=== PATIENT | male | born 1955 | race Caucasian/White ===

== ENCOUNTER 2024-07-14 10:38 | Emergency (ER) | payer MEDICARE ==
[~2024-07-14] VITALS: Ht 167.6 cm; Wt 93.3 kg
[2024-07-14 10:40] VITALS: TEMP 98.8
[2024-07-14 11:53] LABS: BASOPHILS # (AUTO) 0.1 X10'3 (0-0.2); BASOPHILS % (AUTO) 1.2 % (0-1); EOSINOPHILS # (AUTO) 0.2 X10'3 (0-0.9); EOSINOPHILS % (AUTO) 1.8 % (0-6); HEMATOCRIT 43.4 % (42.0-52.0); HEMOGLOBIN 14.5 g/dl (14.0-17.9); LYMPHOCYTES % (AUTO) 10.8 % (21-51); MEAN CORPUSCULAR HEMOGLOBIN 31.1 PG (27.0-31.0); MEAN CORPUSCULAR HGB CONC 33.4 g/dL (33.0-36.5); MEAN CORPUSCULAR VOLUME 92.9 FL (78-98); MEAN PLATELET VOLUME 7.9 FL (7.4-10.4); MONOCYTES % (AUTO) 10.2 % (2-12); NEUTROPHILS # (AUTO) 7.3 X10'3 (1.8-7.7); PLATELET COUNT 242 X10'3 (140-440); RED BLOOD COUNT 4.67 X10'6 (4.70-6.10); RED CELL DISTRIBUTION WIDTH 13.8 % (11.5-14.5); WHITE BLOOD COUNT 9.6 X10'3 (4.5-11.0)
[2024-07-14 12:01] LABS: ALBUMIN 3.4 G/DL (3.4-5.0); ANION GAP 7 (8-16); BLOOD UREA NITROGEN 21 MG/DL (7-18); BUN/CREATININE RATIO 24.4 (10.0-20.0); CALCIUM 8.5 MG/DL (8.5-10.1); CHLORIDE 106 MMOL/L (99-107); CREATININE 0.86 MG/DL (0.60-1.10); GLUCOSE 94 MG/DL (70-104); SODIUM 141 MMOL/L (135-145); TOTAL CARBON DIOXIDE 28.3 MMOL/L (24-32); eCRCL 73 ML/MIN; eGFR 88 ML/MIN
[2024-07-14] MEDS ORDERED: iohexol 300mg/ml 100ml inj. ONE (12:35)
[2024-07-14 14:34] VITALS: BP 179/92; PULSE 81; RESP 18; O2SAT 98
[2024-07-14] MEDS ORDERED: AMOX-580 PO (14:34)
== END 2024-07-14 15:03 | disposition home or self-care (01) ==
LOC: ER 10:40
DX: K57.92 Diverticulitis of intestine, part unspecified, without perforation or abscess without bleeding (principal); R10.32 Left lower quadrant pain
CPT/HCPCS: 36415; 74177; 80048; 85025; 99285; Q9967

== ENCOUNTER 2025-03-29 08:59 | Emergency (ER) | payer MEDICARE ==
[~2025-03-29] VITALS: Ht 172.7 cm; Wt 95.7 kg
[2025-03-29 09:08] VITALS: BP 147/96; PULSE 73; RESP 16; O2SAT 95
[2025-03-29] MEDS ORDERED: SULF1TAB49 PO (10:03)
--- NOTE | 2025-03-29 10:04 | Physician Documentation ---
History of Present Illness ~ Chief Complaint: Wound Stated Complaint: FINGER PAIN Time Seen by MD: 09:15 OK to notify your PCP?: Yes Source: patient Mode of Arrival: POV Exam Limitations: no limitations HPI 70-year-old male who is right-handed with right index finger pain. He states that this happened after he was working in his garden. He is not sure if he got a sliver in his finger what. No pre arrival treatment. Last tetanus was over 10 years ago. No decreased range of motion of his finger. Tetanus within 5 years?: No Medication Reconciliation Allergies: Coded Allergies: No Known Allergies (Unverified , 03/29/25) Scheduled Sulfamethoxazole/Trimethoprim (Bactrim Ds Tablet), 1 TAB PO Q12H Past Medical History Past Medical History: No Pertinent History Review of Systems All Other Systems at this time: Reviewed and Negative Physical Exam Vital Signs: Temperature: 97.4, Source: Temporal, Heart Rate: 73, Respiratory Rate: 16, BP: 147/96, Pulse Oximetry: 95, Weight: 95.700 Physical Exam General Appearance: Alert, WD/WN. NAD. HEENT: NCAT, PERRL, EOMI. Neck: Supple, trachea midline. Cardiovascular: RRR. No m/r/g. Lungs: CTAB. Breathing unlabored Extremities: Normal inspection. No edema. Skin: Warm/dry, normal color Neurological: Alert and oriented x4, normal gait. Psychiatric: Affect congruent with mood. Right finger at the distal tip of the finger right adjacent to the nail plate skin is erythematous with pustule areas tender to palpation, normal inspection of nail plate, active range motion of digit is full. General Appearance: WD/WN Procedures Procedures Distal fingertip was cleaned with alcohol wipes and distal aspect of the finger where the erythematous pustule was was punctured with a 18 gauge needle purulent drainage was expressed and collected for culture patient reported that he felt improvement in his pain and simple dressing placed. Progress Progress Note Distal fingertip was cleaned with alcohol wipes and distal aspect of the finger where the erythematous pustule was was punctured with a 18 gauge needle purulent drainage was expressed and collected for culture patient reported that he felt improvement in his pain and simple dressing placed. Results/Orders Results/Orders Orders - PETTY GORDILLO Cult (Aer) Routine C&S+Gram St (03/29/25 10:04) Completed Orders - PETTY GORDILLO Tetanus/Pertuss/Diph Acell/Pf (Boostrix (03/29/25 10:05) Vital Signs 03/29/25 03/29/25 09:08 10:26 Temp 97.4 97.4 Pulse 73 Resp 16 B/P (MAP) 147/96 Pulse Ox 95 Microbiology Date/Time Source Procedure Growth Status 03/29/25 10:07 Finger Right Index Routine Culture - Preliminary Resulted Medical Decision Making Differential Dx:Considerations: Include: Abscess, Cellulitis, Dressing change, Healing wound Departure Time of Disposition: 10:03 Disposition: 01 HOME / SELF CARE / HOMELESS Impression: Primary Impression: Paronychia Condition: Stable Discharge Instructions: Skin Abscess Additional Instructions: ANTIBIOTIC SENT TO PHARMACY SOAK IN WARM WATER WITH EPSOM SALT IF INCREASING PAIN, SWELLING, REDNESS RETURN TO ER Referrals: NO PRIMARY CARE PROVIDER (PCP) Prescriptions Sulfamethoxazole/Trimethoprim (Bactrim Ds Tablet) 800 Mg-160 Mg Tablet 1 TAB PO Q12H for 10 Days, #20 TAB Prov: PETTY GORDILLO 03/29/25 Education Educated: Patient Educated regarding: diagnosis, treatment, need for follow up Signature Scribe Signature: x Attestation: PETTY Dunlap March 29, 2025 10:04
[2025-03-29] MEDS: TETanus/Pertussis (Acell)/Diphther VAC/PF (Tdap-Adult) 0.5ml syringe IMVAC ONE (10:21)
[2025-03-29 10:26] VITALS: TEMP 97.4
== END 2025-03-29 10:28 | disposition home or self-care (01) ==
LOC: ER 08:59
DX: M79.644 Pain in right finger(s) (principal); Z79.899 Other long term (current) drug therapy
CPT/HCPCS: 10060; 87070; 87077; 87186; 90715; 99283; G0008; 90471

== ENCOUNTER 2025-04-02 14:43 | Emergency (ER) | payer MEDICARE ==
[~2025-04-02] VITALS: Ht 175.3 cm; Wt 93.2 kg
[~2025-04-02 14:43] MED LIST: SULF1TAB49 PO
[2025-04-02 14:45] VITALS: TEMP 97.6
--- NOTE | 2025-04-02 14:54 | Physician Documentation ---
History of Present Illness ~ Chief Complaint: Wound Re-Check Stated Complaint: FINGER RECHECK Time Seen by MD: 16:50 HPI This 70-year-old male presents requesting wound check of a paronychia to his right 2nd finger that he was seen at this emergency department previously for. Patient reports that the area was drained at the time and he was placed on antibiotics. Patient reports no fever, chills, or other systemic symptoms, patient reports no pain, swelling, or redness extending past his right 2nd fingertip. Tetanus within 5 years?: No Medication Reconciliation Allergies: Coded Allergies: No Known Allergies (Unverified , 04/02/25) Scheduled Sulfamethoxazole/Trimethoprim (Bactrim Ds Tablet), 1 TAB PO Q12H Past Medical History Past Medical History: No Pertinent History Review of Systems ROS Pain and swelling to right 2nd finger as stated above in the HPI, otherwise all systems are reviewed and negative. Physical Exam Vital Signs: Temperature: 97.6, Heart Rate: 84, Respiratory Rate: 16, BP: 152/81, Pulse Oximetry: 95, Weight: 93.180 Physical Exam VITALS: Reviewed and as above. GENERAL: Alert, nontoxic appearing, no apparent distress. RESPIRATORY: No increased work of breathing, no respiratory distress, speaking in full clear sentences EXTREMITIES: Dorsal aspect of distal 2nd right finger erythema, tenderness and swelling at the base of nail with fluctuance and purulent drainage, swelling does not extend to the palmar aspect and is localized around the base of the nail. Progress Results/Orders Results/Orders Vital Signs 04/02/25 04/02/25 14:45 17:18 Temp 97.6 Pulse 84 64 Resp 16 18 B/P (MAP) 152/81 163/97 Pulse Ox 95 97 Medical Decision Making Findings This 70-year-old male presented with pain, swelling, and fluctuance at the base of the fingernail of his right 2nd finger, this is consistent with paronychia. It was reassuring the swelling and fluctuance does not extend past the immediate area at the base of the nail and does not involve the palmar aspect of the finger, patient is currently on antibiotics after being previously seen for this in the area of drainage was slightly expanded utilizing the tip of an 18 gauge needle providing adequate decrease in swelling to the area. Remainder of physical exam was benign. Patient was appropriate for outpatient follow up. Patient provided home care instructions and return to care precautions which he verbalized understanding of. Differential Dx:Considerations: Include: Abscess, Cellulitis, Healing wound Departure Disposition: HOME / SELF CARE / HOMELESS Impression: Primary Impression: Wound Condition: Improved Discharge Instructions: Paronychia, [id number] Additional Instructions: Continue taking the previously prescribed antibiotics, continued to soaking clean the area, I recommend increasing the number times you do this per day. Please follow up with your primary care provider in the next few days. Please return to the emergency department for any new or worsening concerning symptoms including but not limited to spreading redness, pain or swelling, or if you develop a fever. Referrals: NO PRIMARY CARE PROVIDER (PCP) Education Educated: Patient Educated regarding: diagnosis, treatment, prognosis, need for follow up Signature Scribe Signature: No scribe Attestation: The note accurately reflects work and decisions made by me.RAFAT Sparrow 04/03/25 02:18 DAMIAN OROSCO April 02, 2025 14:54
[2025-04-02 17:18] VITALS: BP 163/97; PULSE 64; RESP 18; O2SAT 97
== END 2025-04-02 17:19 | disposition home or self-care (01) ==
LOC: ER 14:43
DX: S60.941A Unspecified superficial injury of left index finger, initial encounter (principal); X58.XXXA Exposure to other specified factors, initial encounter; Y93.89 Activity, other specified; Y92.89 Other specified places as the place of occurrence of the external cause; Y99.8 Other external cause status
CPT/HCPCS: 99281

== ENCOUNTER 2025-10-21 13:19 | Emergency (ER) | payer MEDICARE ==
[~2025-10-21] VITALS: Ht 175.3 cm; Wt 93.5 kg
[2025-10-21 13:29] VITALS: BP 157/94; PULSE 70; RESP 20; TEMP 96.7; O2SAT 96
--- NOTE | 2025-10-21 13:51 | Physician Documentation ---
History of Present Illness ~ Chief Complaint: Shoulder pain Stated Complaint: SHOULDER PAIN Time Seen by MD: 13:34 Primary Medical Doctor: NONE HPI 70-year-old male left-hand dominant presents to the emergency department for evaluation of the right shoulder injury. Reports mechanical fall couple of days ago and continues to have pain that is reproducible with range of motion. Denies prior history of the same. He is grossly neurologically intact with excellent cap refill. There was no obvious abrasions, contusions or deformities. Tetanus within 5 years?: No Medication Reconciliation Allergies: Coded Allergies: No Known Allergies (Unverified , 10/21/25) Past Medical History Past Medical History: No Pertinent History Review of Systems All Other Systems at this time: Reviewed and Negative Musculoskeletal: Reports: joint pain Physical Exam Vital Signs: RN Vital Signs have been reviewed: Yes, Temperature: 96.7, Source: Temporal, Heart Rate: 70, Respiratory Rate: 20, BP: 157/94, Pulse Oximetry: 96, Weight: 93.500 Oxygen Flow Rate: 0 General Appearance: alert, WD/WN, mild distress EENT: PERRL/EOMI Respiratory: lungs clear Chest: normal inspection Cardiovascular: normal peripheral pulses Clavicle: normal inspection Shoulder: limited ROM, pain, soft tissue tenderness, other (Reduced range of motion with internal rotation external rotation, abduction and adduction); No: dislocation, deformity, ecchymosis, swelling Drop Arm Test: positive Impingement Test: positive Elbow/Forearm: normal inspection Distal Function: normal pulse Skin: normal color Lymphatic: normal inspection Neurologic: oriented x4 Psychiatric: normal mood/affect Progress Results/Orders Results/Orders Vital Signs 10/21/25 13:29 Temp 96.7 Pulse 70 Resp 20 B/P (MAP) 157/94 Pulse Ox 96 O2 Flow Rate 0 Medical Decision Making Additional information obtaine: N/A Findings Examination history consistent with acute shoulder injury without fracture evidence by normal x-ray findings. Can not exclude soft tissue pathologies such as rotator cuff tear, labrum tear. Patient declines wanting a sling. I have provided him with outpatient prescription for pain. He understands the importance of follow up with the primary care physician and orthopedist for repeat evaluation and consideration of advanced imaging in procedural care as needed. Differential Dx:Considerations: Include: AC separation, Adhesive capsulitis, arthritis, Bicipital tendonitis, Calcific tendonitis, Cervical disc disease, Dislocation, Fracture: Humerus, Fracture: Scapula, Fracture: Clavicle, Impingement syndrome, SC dislocation, Sprain, Subacromial bursitis Departure Disposition: 01 HOME / SELF CARE / HOMELESS Impression: Primary Impression: Strain of shoulder Qualified Codes: S46.912A - Strain of unspecified muscle, fascia and tendon at shoulder and upper arm level, left arm, initial encounter Discharge Instructions: Shoulder Pain, [id number] Additional Instructions: Please follow up with the office of [facility] forr repeated exam and definitive management Referrals: NO PRIMARY CARE PROVIDER (PCP) 1 week [facility] 1 week [facility] 10 days Education Educated: Patient Educated regarding: diagnosis, treatment, prognosis, need for follow up Signature Scribe Signature: . Attestation: . SAVI AMADOR [facility] Oct 21, 2025 13:51
--- NOTE | 2025-10-21 13:58 | RADIOLOGY REPORT ---
EXAM: DI SHOULDER, COMPLETE (MIN 2 VWS) HISTORY: 70-year-old male with right shoulder pain. COMPARISON: None TECHNIQUE: Four views of the right shoulder were performed. FINDINGS: No acute fracture or dislocation are identified about the right shoulder. There is acromioclavicular hypertrophy without loss of subacromial space. 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
== END 2025-10-21 14:21 | disposition home or self-care (01) ==
LOC: ER 13:20
DX: S46.911A Strain of unspecified muscle, fascia and tendon at shoulder and upper arm level, right arm, initial encounter (principal); X58.XXXA Exposure to other specified factors, initial encounter; Y93.89 Activity, other specified; Y92.89 Other specified places as the place of occurrence of the external cause; Y99.8 Other external cause status
CPT/HCPCS: 73030; 99283